=== PATIENT | female | born 1945 | race African-American/Black ===

== ENCOUNTER 2016-10-25 05:57 | Day surgery (SDC) | payer OTHER, BC ==
[2016-10-21 11:33] VITALS: BMI 26.3
[~2016-10-25 05:57] MED LIST: BUPIVACAINE HCL/PF 0.25% (2.5MG/ML) 10 ML VIAL IJ ONE; GELATIN SPONGE,ABSORBABLE 1 GM PACKET TP ONE; methylPREDNISolone ACET (DEPO) 40 MG/1 ML VIAL IM ONE
--- NOTE | 2016-10-25 06:56 | HP ---
History & Physical Update - History History: No Change - Physical Physical: No Change - Assessment Assessment: No Change - Plan Plan: No Change (Scheduled for L4-L5 laminectomy. Prior to surgery, pt c/o pain down her LLE.)
[2016-10-25] MEDS ORDERED: CEFAZOLIN 1 GM in DEXTROSE 5%-WATER - 100 ML IVPB ONE (06:57)
[2016-10-25] MEDS ORDERED: oxyCODONE HCL 10 MG SUSTAINED ACTING TABLET PO STA (06:57)
[2016-10-25] MEDS ORDERED: oxyCODONE HCL 10 MG SUSTAINED ACTING TABLET ONE (07:02)
[2016-10-25] MEDS ORDERED: ePHEDrine SULFATE 50 MG/1 ML AMPULE ONE (07:14)
[2016-10-25] MEDS ORDERED: SUCCINYLCHOLINE CHLORIDE 200 MG/10 ML VIAL ONE (07:14)
[2016-10-25] MEDS ORDERED: SODIUM CHLORIDE 0.9% P/F 10 ML VIAL IJ ONE (07:15)
[2016-10-25] MEDS ORDERED: methylPREDNISolone ACET (DEPO) 40 MG/1 ML VIAL ONE (07:16)
[2016-10-25] MEDS ORDERED: MIDAZOLAM HCL 2 MG/2 ML SINGLE DOSE VIAL ONE (07:16)
[2016-10-25] MEDS ORDERED: LIDOCAINE 1%/EPI 1:100000 (20 ML MULTI DOSE VIAL) ONE (07:16)
[2016-10-25] MEDS ORDERED: THROMBIN (BOVINE) 5,000 UNIT VIAL TP ONE ×2 (07:16→08:54)
[2016-10-25] MEDS ORDERED: BUPIVACAINE HCL/PF 2.5 MG/ML - 30 ML VIAL IJ ONE (07:16)
[2016-10-25] MEDS ORDERED: ROCURONIUM BROMIDE 50 MG/5 ML VIAL ONE (07:18)
[2016-10-25] MEDS ORDERED: PROPOFOL 20 ML ONE (07:18)
[2016-10-25] MEDS ORDERED: DEXAMETHASONE SOD PHOSPHATE 4 MG/1 ML VIAL ONE (08:16)
[2016-10-25] MEDS ORDERED: ONDANSETRON 4 MG/2 ML VIAL ONE ×2 (08:16→10:04)
[2016-10-25] MEDS ORDERED: ceFAZolin SODIUM 1 GM VIAL ONE ×3 (08:17→10:47)
[2016-10-25] MEDS ORDERED: LIDOCAINE 1%/EPI 1:100000 (50 ML MULTI DOSE VIAL) INF ONE (08:30)
[2016-10-25] MEDS ORDERED: GELATIN SPONGE,ABSORBABLE 1 GM PACKET TP ONE (08:54)
[2016-10-25] MEDS ORDERED: BUPIVACAINE HCL/PF 0.25% (2.5MG/ML) 10 ML VIAL IJ ONE (09:39)
[2016-10-25] MEDS ORDERED: methylPREDNISolone ACET (DEPO) 40 MG/1 ML VIAL IM ONE (09:39)
[2016-10-25] MEDS ORDERED: ACETAMINOPHEN 1000 MG/100 ML VIAL (NON FORMULARY) IVPB ONE (10:01)
[2016-10-25] MEDS ORDERED: traMADol HCL 50 MG TABLET PO ONE (10:01)
--- NOTE | 2016-10-25 10:06 | SURG ---
Surgery Registered Associate Note Registered Associate: Jerrod Whitfield PA-C Date of Service: 10/25/16 Diagnosis: Spinal stenosis (L4/5) with radiculopathy Procedure: Laminectomy L4/5 (bilateral) I was present for the entirety of the operative procedure. For further detail, please refer to operative report. Visit type - Case Type Case Type: Scheduled Admission - New patient This patient is new to me today: Yes Date on this admission: 10/25/16
--- NOTE | 2016-10-25 10:06 | OP ---
Operative Note - Note: Operative Date: 10/25/16 Pre-Operative Diagnosis: Spinal stenosis (L4/5) with radiculopathy Operation: Laminectomy L4/5 (bilateral) Post-Operative Diagnosis: Same as Pre-op Surgeon: Kashmir Keen Clinical Trial Manager: Jerrod Whitfield Anesthesiologist/GENERAL PEDIATRICIAN: Estrella Persaud Anesthesia: Spinal Estimated Blood Loss (mls): 20 Fluid Volume Replaced (mls): 750 (LR) Operative Report Dictated: Yes
[2016-10-25] MEDS ORDERED: LACTATED RINGERS SOLUTION 1,000 ML IV SCH (11:15)
[2016-10-25] MEDS ORDERED: ONDANSETRON 4 MG/2 ML VIAL IVPUSH PRN (11:28)
[2016-10-25] MEDS ORDERED: oxyCODONE HCL 5 MG TABLET PO PRN (11:29)
--- NOTE | 2016-10-25 11:41 | OP ---
DATE OF OPERATION: 10/25/2016 PREOPERATIVE DIAGNOSIS: Spinal stenosis L4-L5. POSTOPERATIVE DIAGNOSIS: Spinal stenosis L4-L5. PROCEDURE PERFORMED: Laminectomy L4-L5. SURGEON: Kashmir Keen MD LEGAL SECRETARY: REJI Stanford ESTIMATED BLOOD LOSS: 50 mL. IV FLUIDS: Per Anesthesia. ANESTHESIA: Spinal. COMPLICATIONS: None. DISPOSITION: The patient was brought to the PACU in stable condition. INDICATIONS FOR SURGERY: The patient is 71-year-old female who has been suffering from pain from her back down her legs. X-rays and MRI were completed, which noted that she had spinal stenosis at L4-L5. She had gone through an exhaustive course of treatment for this, which included medications, physical therapy as well as injections. Unfortunately, her pain continued to persist despite all this. At this point, risks, benefits, and alternatives were discussed, and the patient consented to surgery. DESCRIPTION OF PROCEDURE: The patient was brought to the operating room by the Anesthesia staff. After appropriate patient identification was performed, spinal anesthesia was given. She was placed prone onto the Michael frame with all areas and bony prominences well padded at this time. Two needles were placed into her back to carroll off the L4-L5 level, and x-ray was taken to confirm this was correct. The needle was removed, and 10 mL of lidocaine with epinephrine was injected into her back. At this time, her back was prepped and draped in a sterile manner. At this point, a time-out was completed. An incision was made from the top of L4 down to the bottom of L5. Dissection was carried down to the fascia. Fascia was then split at this time, and appropriate retractor was then placed in. A spinal needle was placed onto the L4 lamina to carroll off the L4-L5 level, and x-ray was taken to confirm this was correct. At this point, the microscope was brought in. Portions of the L4 and L5 spinous process was removed then the spinous ligament was removed. Portions of the L4-L5 lamina were removed. The flavum was identified, and it was removed. A complete decompression was performed such that by the end of the procedure, the L5 nerve roots appeared to be well decompressed. All bleeding is well controlled at this time. Steri-Strips was placed over the nerve root. FloSeal was placed over that. The fascia was closed with a No. 1 Vicryl suture. The subcutaneous tissue was closed with 2-0 Vicryl suture. The skin was closed with 3-0 Monocryl suture. Dermabond was applied. A sterile dressing was applied. The patient was placed supine on the OR bed, extubated in the OR, and brought to the PACU in stable condition. Emily HECTOR/[id number]
[2016-10-25 11:47] VITALS: TEMP 98.2
[2016-10-25 13:26] VITALS: PULSE 65
[2016-10-25 13:28] VITALS: BP 118/68
== END 2016-10-25 14:30 | disposition home or self-care (01) ==
LOC: FASU 05:57
PROVIDERS: ATTEND Orthopaedic Surgery Orthopaedic Surgery of the Spine
PROC: 01NB0ZZ Release Lumbar Nerve, Open Approach (ICD-10-PCS; principal; 2016-10-25 07:55)
DX: M48.06 Spinal stenosis, lumbar region (principal)
CPT/HCPCS: 72100-TC; 94760